=== PATIENT | female | born 1980 | race Caucasian/White ===

== ENCOUNTER 2018-08-08 15:23 | Inpatient (IN) | payer BC ==
[2018-08-08] MEDS ORDERED: Lactated Ringer's 1,000 ML IV ONE (16:12)
[2018-08-08] MEDS ORDERED: Lactated Ringer's 1,000 ML IV SCH (16:15)
[2018-08-08 16:30] LABS: BASO % 0.3 % (0.0-2.0); EOS # 0.1 K/uL (0.0-0.7); EOS % 1.5 % (0.0-4.0); HEMOGLOBIN 12.7 g/dL (11.0-16.0); LYMPH # 1.3 K/uL (1.0-4.3); LYMPH % 14.1 % (20.0-40.0); MEAN CELL VOLUME 95.3 fL (81.0-99.0); MEAN CORPUSCULAR HEMOGLOBIN 33.1 pg (27.0-31.0); MEAN CORPUSCULAR HGB CONC 34.7 g/dL (33.0-37.0); MEAN PLATELET VOLUME 10.2 fL (7.2-11.7); MONO # 0.6 K/uL (0.0-0.8); MONO % 6.5 % (0.0-10.0); NEUT # 7.2 K/uL (1.8-7.0); NEUT % 77.6 % (50.0-75.0); NRBC % 0.1 % (0.0-2.0); RBC 3.83 Mil/uL (3.80-5.20); RED CELL DISTRIBUTION WIDTH 13.7 % (11.5-14.5); WHITE BLOOD COUNT 9.3 K/uL (4.8-10.8)
[2018-08-08 16:33] LABS: SQUAMOUS EPITHIAL 6 /hpf (0-5); URINE BACTERIA FEW (<OCC); URINE BILIRUBIN NEGATIVE (NEGATIVE); URINE BLOOD 3+ (NEGATIVE); URINE CLARITY Clear (Clear); URINE COLOR Yellow (YELLOW); URINE GLUCOSE (UA) NORMAL (Normal); URINE LEUKOCYTE ESTERASE TRACE Leu/uL (Negative); URINE PROTEIN NEGATIVE (NEGATIVE); URINE UROBILINOGEN NORMAL mg/dL (0.2-1.0)
[2018-08-08] MEDS ORDERED: Sodium Citrate/Citric Acid 15 ml Sol PO ONE (16:41)
[2018-08-08] MEDS ORDERED: cefOXitin IV 2 gm in Saline 2 GM in Sodium Chloride 0.9% 50 ML IV SCH ×2 (16:45→19:00)
[2018-08-08] MEDS ORDERED: Oxytocin 20 units in LR 2,000 ML IV ONE (17:15)
[2018-08-08] MEDS ORDERED: cefOXitin IV 2 gm in Saline 2 GM/50 ML BAG IVPB ONE (17:15)
[2018-08-08] MEDS ORDERED: Sodium Citrate/Citric Acid 15 ml Sol ONE (17:16)
--- NOTE | 2018-08-08 17:17 | OBHP ---
Datetime: 08/08/2018 16:42 IP Adm Impression: Term, intrauterine ; No Active Labor; Intact Membranes IP Admit Plan: Admit to unit; Initiate Section protocol Admit Comment, IP Provider: CC: vaginal bleeding HPI: Patient is a 38 year old female at 37 weeks 4 days gestational age by NANCY 08/24/2018 pre senting with two episodes of vaginal spotting that began approximately at 11:30 AM. She admits to fat igue and mild discomfort in her lower abdomen with increased sensation of "pressure," however denies pain at this time. She has positive movements, no loss of fluid. She drinks approximately 2 gla sses of water a day. She also admits to increased urinary frequency in the past week. Her co urse has been unremarkable. Patient follows up with Dr. Moore. Last appointment was 08/04/2018. Past OB history: vacuum-assisted vaginal delivery in 2016, female, 5 lb. 8 oz., [facility], 3rd degree laceration Past PRACTICE REPRESENTATIVE history: Menarche at 14 years old. Periods every 30 days with interval of 7 days. Denies history of fibroids, ovarian cysts PMH: Denies PSH: Denies Allergies: NKDA Meds: PNV Social history: Denies alcohol, tobacco, recreational drug use. . Homemaker. Family history: Mother (living at 74 yo, hyperlipidemia), Father ( at 46 yo from brain aneurys m) PE: See as above A: Patient is a 38 year old female at 37 weeks 4 days gestational age presenting with two epi sodes of vaginal spotting indicating onset of labor. Category [address] Moore. Torres patel desires Cesearean section delivery due to prior trauma of 3rd degree laceration. Patient last a te at 3:00 PM. Clinically stable. P: Admit for Cesearean section delivery. Gray Parks PGY-1 Attending Note: patient seen and evlauated by me with the Resident. I agree with the above as docu mented. Cervical examination performed by me. Dr. Moore is aware. PlN: 1) Admit 2) NPO 3) Admission labs 4) Continuous EFM 5) Clark 6) Abdominal prep and shave 7) Notify anesthesia 8) Notify peds 9) [employer] project production engineer to O.R. - As per, and D/W, Dr. Moore Pelvic Type - PN: Adequate Extremities - PN: Normal Abdomen - PN: Normal Back - PN: Normal Breast - PN: Not Done Lungs - PN: Normal Heart - PN: Normal Thyroid - PN: Normal Neurologic - PN: Normal HEENT - PN: Normal General - PN: Normal Contraction Comments Provider: every 8 minutes Comments, ACOG Physical Exam: Abdomen: Gravid. Soft. Non tender. Fundal height 37 cm All other systems reviewed and are negative IP Hx Assessment: The History has been Reviewed and is Current EGA AdmitDate IP: 37.5 Vital Signs Provider: Reviewed; Within Normal Limits IP Indication for Induction: Not Applicable IP Chief Complaint: Vaginal bleeding NICHD Variability Prov Fetus A: Absent - Undetectable Dilatation, Provider: 3-4 Effacement, Provider: 40 Station, Provider: -3 Genitourinary Exam: Normal DTRs - PN: Not Done
[2018-08-08] MEDS: cefOXitin IV 2 gm in Dextrose 2 GM/50 ML BAG IVPB SCH (17:19)
[2018-08-08] MEDS ORDERED: Morphine 1 mg/ml preservative-free Inj(Duramorph) ONE (17:52)
[2018-08-08] MEDS ORDERED: Naloxone 0.4 mg/ml Inj (Adult) IVP PRN (19:00)
[2018-08-09] MEDS: cefOXitin IV 2 gm in Dextrose 2 GM/50 ML BAG IVPB SCH ×2 (00:52→08:56)
--- NOTE | 2018-08-09 02:54 | HP ---
HISTORY OF PRESENT ILLNESS: The patient is a 38-year-old female 2, para 1 at 37 weeks by date, who was previously scheduled for an elective section who came in today with episodes of vaginal bleeding for the last 12 hours. The patient was noted to be darlene with cervical exam of 3 to 4 cm, 90% effaced. Admitting diagnosis of intrauterine , in labor. The patient does not desire to undergo a vaginal delivery because of prior significant vaginal lacerations which occurred with initial . PAST OBSTETRICAL HISTORY: Significant for history of one normal spontaneous vaginal delivery with a fourth-degree extension. CURRENT MEDICATIONS: Vitafol Ultra. SOCIAL HISTORY: She does not smoke or drink. Currently, she is not taking any calcium or airborne medications. PHYSICAL EXAMINATION: VITAL SIGNS: Blood pressure is 110/70, pulse 72, respiratory rate 20, temperature is 98.8. HEENT: Head, ears, nose, and throat, examination, are within normal. CHEST: Clear. CARDIAC: Reveals normal heart sounds without any murmurs. LUNGS: Clear. BREASTS: Revealed no masses. ABDOMEN: Symphyseal fundal height is 38 cm, longitudinal lie vertex. heart tones are normal. PELVIC: Cervix is 4 cm, 90% effaced, -2 station. ADMITTING DIAGNOSES: Intrauterine at 37 weeks in active labor. The patient does not desire vaginal delivery because of prior history of fourth-degree extension, and desires to undergo an elective section. Plan is to perform a lower segment section with some agency because of the risk of further progression of labor. Prior to being scheduled for the surgical procedure, the patient underwent an informed consent, discussion, and education session with me in the office and also in the hospital during which time I explained to her in understandable terms the following: The nature and extent of the disease process, the nature and extent of the contemplated operation. I also explained to her the risks and potential complications of the operative procedures to include but not limited to infection, hemorrhage, deep vein thrombosis, atelectasis, pneumonia, pulmonary embolism, damage to the bladder, damage to the ureter, renal insufficiency, renal failure, wound infection, wound dehiscence, incisional hernia, keloid formation, damage to large and small intestines, damage to the inferior vena cava and aorta requiring extensive repair, anesthesia complications, electrolyte imbalance, possibility of , fluid overload, cerebral edema, embolism, and other complications that were discussed but are not listed above. I also discussed with the patient the anticipated benefits and results of the surgery including the conservative estimate of the successful outcome. I discussed with the patient what the operation would not accomplish. I informed the patient of the possibility of unanticipated pathology requiring a more extensive procedure. All the questions from the patient were encouraged, welcomed, and answered to her satisfaction. The patient had been given the opportunity to store her own blood for use and autologous blood transfusion prenatally and she had declined. Efren Nunn MD
--- NOTE | 2018-08-09 04:36 | OP ---
PROCEDURE DATE: 08/08/2018 PREOPERATIVE DIAGNOSIS: Intrauterine at 37 weeks, in active labor, desires elective section. POSTOPERATIVE DIAGNOSIS: Intrauterine at 37 weeks, in active labor, desires elective section. PROCEDURE: Lower segment section. FINDINGS: A live female . Apgars 9 at one minute and 9 at five minutes, with normal tubes and ovaries. SURGEON: Efren Nunn MD EMERGENCY RESPONSE OFFICER: Brandin Smith MD TYPE OF ANESTHESIA: Spinal. ESTIMATED BLOOD LOSS: 250 mL COMPLICATIONS: Nil. DESCRIPTION OF PROCEDURE: After the risks, benefits, and alternatives of the planned procedure including but not limited to infection, hemorrhage, deep vein thrombosis, atelectasis, pneumonia, pulmonary embolism, damage to the bladder, damage to the ureter, renal insufficiency, renal failure, wound infection, wound dehiscence, incisional hernia, keloid formation, damage to the large and small intestine, damage to the inferior vena cava and aorta requiring extensive repair, anesthesia complications, electrolyte imbalance, possibility of , fluid overload, cerebral edema, embolism, and other complications that were discussed but are not listed above have been explained to the patient and all her questions answered, informed consent was obtained. The patient was taken to the operating room in a stable condition. Under a suitable level of spinal analgesia, she was prepped and draped in a sterile fashion after having been placed in a supine position. The abdomen was entered through a Pfannenstiel-type incision and carried through the subcutaneous tissues to the fascia. Fascia was opened transversely and dissected off the rectus abdominis musculature. The rectus abdominis musculature was then in the midline to reveal the parietal peritoneum, which was entered sharply and incised superiorly and inferiorly. The bladder peritoneum was then excised in a curvilinear fashion and dissected off the lower uterine segment. The lower uterine segment was then entered through a curvilinear incision. The surgeon's fingers were inserted into the lower uterine segment to grasp the infant's head, which was lying in a right occipital anterior position. The head was easily delivered, nose and mouth were suctioned free of amniotic fluid, and the remainder of the infant was delivered without any difficulty. Cord was doubly clamped and cut and the baby was handed over to the pediatricians who were in attendance. Cord blood was collected with Pitocin running, placenta was manually removed. The endometrium was then cleaned free of remaining membranes and clots. Placenta was then manually removed after collecting cord blood. The endometrium was cleaned free of remaining membranes and clots. The uterine incision was closed in two layers with the first layer being a running interlocking layer using #1 chromic and the second layer being used to imbricate the first layer. Hemostasis was good. The bladder peritoneum was then reapproximated using running suture of 2-0 chromic. Peritoneal cavity was then irrigated using copious amounts of saline. The saline was evacuated. The abdomen was then closed in layers with 0 chromic to the parietal peritoneum. Rectus muscles were reapproximated using interrupted sutures of 0 chromic. Fascia was reapproximated using two separate running sutures of 0 Vicryl to meet in the midline. Subcutaneous tissues were reapproximated using interrupted sutures of 0 plain and the initial skin incision was reapproximated using 4-0 Vicryl in a subcuticular fashion. Estimated blood loss for the procedure was 250 mL. Pad, needle, and instrument counts were correct x2. There were no complications. Efren Nunn MD
[2018-08-09] MEDS: Oxycodone/Acetaminophen 5/325 mg Tab PO PRN ×3 (08:43→21:30)
[2018-08-09 08:55] LABS: MEAN CELL VOLUME 95.4 fL (81.0-99.0); MEAN CORPUSCULAR HEMOGLOBIN 32.3 pg (27.0-31.0); MEAN CORPUSCULAR HGB CONC 33.9 g/dL (33.0-37.0); MEAN PLATELET VOLUME 10.4 fL (7.2-11.7); RBC 3.25 Mil/uL (3.80-5.20); RED CELL DISTRIBUTION WIDTH 13.6 % (11.5-14.5)
[2018-08-09 08:57] LABS: HEMOGLOBIN 10.5 g/dL (11.0-16.0)
[2018-08-09] MEDS: Enoxaparin 40 mg Syringe SC SCH (09:04)
[2018-08-09] MEDS: Prenatal Multivit/Folic Acid/Iron Tab PO SCH (09:08)
--- NOTE | 2018-08-09 13:48 | PN ---
DATE: 08/09/2018 SUBJECTIVE: The patient has no complaint. PHYSICAL EXAMINATION: VITAL SIGNS: Stable. She is afebrile. ABDOMEN: Incision is clean and intact. Bowel sounds are normal. CHEST: Clear. CARDIAC: Reveals normal heart sounds without any murmurs. LUNGS: Clear. EXTREMITIES: Nontender. ASSESSMENT: The patient is status post section day #1. PLAN: To ambulate the patient. Advance diet as tolerated. Change IV to hep-lock. Efren Nunn MD
[2018-08-09] MEDS ORDERED: Bisacodyl 5mg EC Tab PO ONE (14:00)
[2018-08-09] MEDS: Simethicone 80 mg Chewtab PO SCH ×3 (14:38→21:26)
[2018-08-09] MEDS ORDERED: Magnesium Hydroxide Susp 30 ml UD PO ONE (22:00)
[2018-08-10 08:07] VITALS: RESP 18
[2018-08-10] MEDS: Simethicone 80 mg Chewtab PO SCH ×4 (09:07→21:35)
[2018-08-10] MEDS: Prenatal Multivit/Folic Acid/Iron Tab PO SCH (09:07)
[2018-08-10] MEDS: Enoxaparin 40 mg Syringe SC SCH (09:08)
[2018-08-10] MEDS: Oxycodone/Acetaminophen 5/325 mg Tab PO PRN (13:20)
[2018-08-10 16:17] VITALS: O2SAT 100
--- NOTE | 2018-08-11 00:07 | PN ---
DATE: 08/10/2018 SUBJECTIVE: The patient has no complaint. OBJECTIVE: VITAL SIGNS: Stable. She is afebrile. ABDOMEN: Abdominal incision is clean and intact. Bowel sounds are normal. EXTREMITIES: Nontender. NEUROLOGIC: She is alert and oriented x3. Nicole's sign is negative. No evidence of DVT. with no engorgement. ASSESSMENT: The patient is status post section day #2. PLAN: Plan is to continue ambulating and advancing diet. Anticipate discharge home tomorrow on Keflex 500 mg q.i.d. times 7 days and Tylenol #3 two tablets every 4 hourly p.r.n. for a total of 20 tablets. We will follow them in the office in one week. Efren Nunn MD
[2018-08-11] MEDS: Oxycodone/Acetaminophen 5/325 mg Tab PO PRN (08:09)
--- NOTE | 2018-08-11 08:56 | PN ---
DATE: 08/11/2018 SUBJECTIVE: The patient has no complaints. She had a bowel movement. OBJECTIVE: VITAL SIGNS: Stable. She is afebrile. ABDOMEN: Soft. Incision is clean and intact. EXTREMITIES: Nontender with negative Homans' sign. GENITOURINARY: Lochia is scant. ASSESSMENT AND PLAN: The patient is status post lower segment section day #3. Plan is to discharge the patient today on Keflex 500 mg 4 times daily x7 days and Tylenol No. 3 two tablets every four hours p.r.n. for a total of 40 tablets to be followed up in the office in one week. Efren Nunn MD
[2018-08-11] MEDS: Simethicone 80 mg Chewtab PO SCH (10:17)
[2018-08-11] MEDS: Prenatal Multivit/Folic Acid/Iron Tab PO SCH (10:18)
[2018-08-11] MEDS: Enoxaparin 40 mg Syringe SC SCH (10:19)
[2018-08-11 11:09] VITALS: BP 107/70; PULSE 90; TEMP 97.9
--- NOTE | 2018-08-12 04:40 | DS ---
The patient is a 38-year-old female who was admitted for an elective section after she had come in labor, 37 weeks. She underwent a lower segment section. Postoperatively, she remained afebrile. Discharged home on postoperative day #3 on Keflex 500 mg four times a day x7 days and Tylenol No. 3 two tablets every 4 hourly for a total of 20 tablets. To be followed up in the office in one week. Efren Nunn MD [facility] # [id number]
== END 2018-08-11 12:40 | disposition home or self-care (01) | DRG 766 ==
LOC: C.EROB 15:23 → C.4D 16:26 → C.4M 21:30
PROVIDERS: ADMIT Obstetrics & Gynecology Reproductive Endocrinology; ATTEND Obstetrics & Gynecology Reproductive Endocrinology
PROC: 10D00Z1 Extraction of Products of Conception, Low, Open Approach (ICD-10-PCS; principal; 2018-08-08)
DX: O75.89 Other specified complications of labor and delivery (principal); Z87.59 Personal history of other complications of pregnancy, childbirth and the puerperium; Z3A.37 37 weeks gestation of pregnancy; Z37.0 Single live birth